=== PATIENT | female | born 1995 | race Caucasian/White ===

== ENCOUNTER 2024-01-24 20:37 | Emergency (ER) | payer BC ==
[~2024-01-24] VITALS: Ht 160 cm; Wt 59.0 kg
[2024-01-24] MEDS ORDERED: LIDOCAINE 1% INJ 50 ML MDV IJ ONE (21:41)
[2024-01-24] MEDS ORDERED: SULF1TAB48 PO (22:40)
[2024-01-24] MEDS ORDERED: FLUC150T PO (22:42)
[2024-01-24 23:38] VITALS: BP 121/80; TEMP 98.6; O2SAT 98
== END 2024-01-24 23:39 | disposition home or self-care (01) ==
LOC: ER 20:39
DX: S61.214A Laceration without foreign body of right ring finger without damage to nail, initial encounter (principal); F32.A Depression, unspecified; W25.XXXA Contact with sharp glass, initial encounter; Y93.89 Activity, other specified; Y92.89 Other specified places as the place of occurrence of the external cause; Y99.8 Other external cause status
CPT/HCPCS: 12002; 99283; J3490